=== PATIENT | male | born 1945 | race Caucasian/White ===

== ENCOUNTER 2022-10-10 12:24 | Inpatient (IN) | payer MEDICARE ==
[2022-10-10] MEDS ORDERED: Ondansetron PF 4 MG/2 ML Vial ONE (12:54)
[2022-10-10] MEDS ORDERED: Morphine 4 MG/ML VIAL ONE ×3 (12:54→17:16)
[2022-10-10 13:38] LABS: #Eosinphils 0.3 thou/uL (0.0-0.7); #Lymphocytes 1.5 thou/uL (1.20-3.40); #Monocytes 0.8 thou/uL (0.11-0.59); #Neutrophils 11.2 thou/uL (1.40-6.50); %Basophils 0.2 % (0.0-1.0); %Eosinophils 1.9 % (0.0-10.0); %Lymphocytes 11.2 % (21.0-51.0); %Monocytes 5.7 % (0.0-10.0); Hemoglobin 12.2 g/dL (14.0-18.0); Mean Corpuscular HGB CONC 33.4 g/dL (32.0-36.0); Mean Corpuscular Hemoglobin 31.6 pg (27.0-31.0); Mean Corpuscular Volume 94.4 fl (78.0-98.0); Mean Platelet Volume 7.9 fL (7.4-10.4); Platelet Count 206 10x3/uL (130-400); RBC Distribution Width 11.9 % (11.5-14.5); Red Blood Cell (RBC) Count 3.87 mill/uL (4.70-6.10); White Blood Cell (WBC) Count 13.8 10x3/uL (4.8-10.8)
[2022-10-10 13:58] LABS: INR-International Normal Ratio 1.3; Prothrombin Time 17.1 sec (12.0-14.7)
[2022-10-10 13:59] LABS: PTT 33.5 sec (22.9-36.1)
[2022-10-10] MEDS ORDERED: Ondansetron PF 4 MG/2 ML Vial IVP PRN (14:01)
[2022-10-10] MEDS ORDERED: hydrALAZINE 20 MG/ML VIAL SLOW IVP PRN (14:01)
[2022-10-10] MEDS ORDERED: TETANUS, DIPHTHERIA TOX,ADULT (TDVAX) 0.5 ML VIAL IM ONE (14:01)
[2022-10-10] MEDS ORDERED: Morphine 2 MG/ML VIAL SLOW IVP PRN (14:01)
[2022-10-10] MEDS ORDERED: Ipratropium/Albuterol 3 ML NEB NEB PRN (14:04)
[2022-10-10] MEDS ORDERED: traMADol HCl 50 MG TAB PO PRN (14:04)
[2022-10-10 14:18] LABS: ALT (SGPT) 20 U/L (8-55); AST (SGOT) 22 U/L (5-34); Albumin 4.2 g/dL (3.4-4.8); Alkaline Phosphatase 90 U/L (40-110); Anion Gap 12 mmol/L (10-20); BUN (Urea Nitrogen) 46 mg/dL (8.4-25.7); Bilirubin, Total 0.7 mg/dL (0.2-1.2); Calc. Creatinine Clearance 0 mL/min (70-130); Carbon Dioxide 22 mmol/L (23-31); Chloride 111 mmol/L (98-107); Estimated GFR 26; Glucose 102 mg/dL (83-110); Potassium 3.8 mmol/L (3.5-5.1); Protein, Total 6.2 g/dL (5.8-8.1); Sodium 141 mmol/L (136-145)
[2022-10-10] MEDS ORDERED: Cyclobenzaprine 10 MG TAB PO PRN (14:34)
[2022-10-10] MEDS ORDERED: Sodium Chloride 0.9% 1,000 ML IV SCH (14:45)
[2022-10-10] MEDS ORDERED: Dextrose 5% in Water 1,000 ML IV PRN (14:51)
[2022-10-10] MEDS ORDERED: Dextrose 50% Abboject 50 ML SYRINGE SLOW IVP PRN (14:51)
[2022-10-10] MEDS ORDERED: Clindamycin/D5W 900 MG in Premix Bag 1 BAG IVPB SCH (15:00)
[2022-10-10] MEDS ORDERED: Furosemide 20 MG/2 ML VIAL SLOW IVP SCH (15:00)
[2022-10-10] MEDS ORDERED: Acetaminophen 500 MG TAB PO SCH (15:15)
[2022-10-10] MEDS ORDERED: traMADol HCl 50 MG TAB PO SCH (18:00)
[2022-10-10 19:05] LABS: SARS-CoV-2 NAA Rapid Test Not Detected (NotDetected)
[2022-10-10] MEDS: Acetaminophen 500 MG TAB PO SCH (20:23)
[2022-10-10] MEDS: Morphine 4 MG/ML VIAL SLOW IVP PRN (20:24)
[2022-10-10] MEDS: Senokot S 8.6-50 MG TAB PO SCH (20:24)
[2022-10-10] MEDS ORDERED: Famotidine/PF 20 mg/2ml Vial SLOW IVP SCH (21:00)
[2022-10-10] MEDS: traMADol HCl 50 MG TAB PO SCH (22:37)
[2022-10-11] MEDS: Acetaminophen 500 MG TAB PO SCH ×2 (02:22→19:19)
[2022-10-11 02:31] LABS: Bacteria/HPF None Seen HPF (None Seen); Bilirubin Negative (Negative); Blood, Urine Negative (Negative); CAUTI Indications for Culture Pelvic or flank pain; Clarity Clear (Clear); Glucose, Urine (Dipstick) Normal (Negative); Ketone, Urine Negative (Negative); Leukocyte Negative Leu/uL (Negative); Nitrite Negative (Negative); Protein, Urine (Dipstick) 10 mg/dL (Neg-Trace); RBC/HPF 0-3 HPF (0-3); Specific Gravity, Urine 1.014 (1.002-1.036); Squamous Epithelial None Seen HPF (0-3); Urobilinogen Normal mg/dL (Less than 2); WBC/HPF 0-3 HPF (0-3)
[2022-10-11 02:38] LABS: Urine Culture Reflex No No
[2022-10-11 03:26] VITALS: BMI 25.3
[2022-10-11] MEDS: traMADol HCl 50 MG TAB PO SCH ×3 (05:51→20:23)
[2022-10-11 06:27] LABS: Hemoglobin A1c 5.2 % (4.0-6.0)
[2022-10-11 06:40] LABS: #Eosinphils 0.4 thou/uL (0.0-0.7); #Lymphocytes 1.5 thou/uL (1.20-3.40); #Monocytes 0.9 thou/uL (0.11-0.59); #Neutrophils 5.9 thou/uL (1.40-6.50); %Basophils 0.4 % (0.0-1.0); %Eosinophils 5.1 % (0.0-10.0); %Lymphocytes 16.9 % (21.0-51.0); %Monocytes 10.2 % (0.0-10.0); %Neutrophils 67.4 % (42.0-75.0); Anion Gap 12 mmol/L (10-20); BUN (Urea Nitrogen) 44 mg/dL (8.4-25.7); Calc. Creatinine Clearance 28 mL/min (70-130); Calcium 9.6 mg/dL (7.8-10.44); Carbon Dioxide 21 mmol/L (23-31); Chloride 113 mmol/L (98-107); Estimated GFR 29; Glucose 92 mg/dL (83-110); Hemoglobin 11.6 g/dL (14.0-18.0); Magnesium 2.1 mg/dL (1.6-2.6); Mean Corpuscular HGB CONC 34.2 g/dL (32.0-36.0); Mean Corpuscular Hemoglobin 33.4 pg (27.0-31.0); Mean Corpuscular Volume 97.4 fl (78.0-98.0); Mean Platelet Volume 7.7 fL (7.4-10.4); Phosphorus 3.8 mg/dL (2.3-4.7); Platelet Count 160 10x3/uL (130-400); Potassium 3.8 mmol/L (3.5-5.1); RBC Distribution Width 11.8 % (11.5-14.5); Red Blood Cell (RBC) Count 3.47 mill/uL (4.70-6.10); Sodium 142 mmol/L (136-145); White Blood Cell (WBC) Count 8.7 10x3/uL (4.8-10.8)
[2022-10-11] MEDS ORDERED: MELATONIN 1 MG PO PRN (07:39)
[2022-10-11] MEDS ORDERED: Nitroglycerin 0.4 MG TAB (25 Tab Bottle) SL PRN (07:39)
[2022-10-11] MEDS ORDERED: MELATONIN PO PRN (07:51)
[2022-10-11] MEDS ORDERED: Non-Formulary Item 1 EACH (Icosapent Ethyl 1 GM Capsule) PO SCH (08:00)
[2022-10-11] MEDS ORDERED: Losartan 25 MG TAB PO SCH (09:00)
[2022-10-11] MEDS: Morphine 4 MG/ML VIAL SLOW IVP PRN (10:04)
[2022-10-11] MEDS: Polyethylene Glycol 3350 17 GM Packet PO SCH (10:09)
[2022-10-11] MEDS: Pantoprazole 40 MG VIAL IVP SCH (10:10)
[2022-10-11] MEDS: Carvedilol 3.125 MG TAB PO SCH (10:10)
[2022-10-11] MEDS: Senokot S 8.6-50 MG TAB PO SCH ×2 (10:11→20:23)
[2022-10-11] MEDS: Icosapent Ethyl 1 GM CAPSULE PO SCH ×2 (10:20→17:37)
[2022-10-11] MEDS: Acetaminophen/Codeine 30-300mg Tablet PO SCH ×3 (11:00→23:17)
[2022-10-11] MEDS ORDERED: Non-Formulary Item 1 EACH (Levothyroxine Sodium [Levothyroxine] 50 MCG Capsule) PO SCH (11:30)
[2022-10-11] MEDS: NIFEdipine XL 60 MG TAB PO SCH (20:23)
[2022-10-12] MEDS: traMADol HCl 50 MG TAB PO SCH ×3 (05:20→21:32)
[2022-10-12] MEDS: Acetaminophen/Codeine 30-300mg Tablet PO SCH ×3 (05:21→17:47)
[2022-10-12] MEDS: Levothyroxine Sodium 50 MCG TAB PO SCH (05:21)
[2022-10-12] MEDS: Carvedilol 3.125 MG TAB PO SCH (09:42)
[2022-10-12] MEDS: NIFEdipine XL 60 MG TAB PO SCH ×2 (09:42→21:31)
[2022-10-12] MEDS ORDERED: Glycopyrrolate 0.2 MG/ML 5 ML SYRINGE ONE (12:45)
[2022-10-12] MEDS ORDERED: Ondansetron PF 4 MG/2 ML Vial ONE (12:45)
[2022-10-12] MEDS ORDERED: NEOSTIGMINE 3 MG/3 ML SYR 3 MG/3 ML SYRINGE ONE (12:45)
[2022-10-12] MEDS ORDERED: Rocuronium Bromide 10 MG/ML (10ML VIAL) ONE (12:45)
[2022-10-12] MEDS ORDERED: PROPOFOL 200 MG/20 ML VIAL ONE (12:45)
[2022-10-12] MEDS ORDERED: Clindamycin/D5W 900 mg/50 ml Premix Bag ONE (13:20)
[2022-10-12] MEDS ORDERED: Fentanyl 100 MCG/2 ML VIAL ONE (14:31)
[2022-10-12] MEDS: Senokot S 8.6-50 MG TAB PO SCH ×2 (17:46→21:32)
[2022-10-12] MEDS: Polyethylene Glycol 3350 17 GM Packet PO SCH (17:46)
[2022-10-12] MEDS: Pantoprazole 40 MG VIAL IVP SCH (17:46)
[2022-10-12] MEDS: Icosapent Ethyl 1 GM CAPSULE PO SCH (17:46)
[2022-10-12] MEDS: Clindamycin/D5W 900 MG in Premix Bag 1 BAG IVPB SCH (21:31)
[2022-10-13] MEDS: Acetaminophen/Codeine 30-300mg Tablet PO SCH ×5 (00:28→21:05)
[2022-10-13] MEDS: traMADol HCl 50 MG TAB PO SCH ×3 (05:44→21:28)
[2022-10-13] MEDS: Clindamycin/D5W 900 MG in Premix Bag 1 BAG IVPB SCH (05:45)
[2022-10-13] MEDS: Levothyroxine Sodium 50 MCG TAB PO SCH (05:45)
[2022-10-13 07:02] LABS: #Eosinphils 0.3 thou/uL (0.0-0.7); #Lymphocytes 1.1 thou/uL (1.20-3.40); #Monocytes 1.2 thou/uL (0.11-0.59); #Neutrophils 6.9 thou/uL (1.40-6.50); %Basophils 0.1 % (0.0-1.0); %Eosinophils 2.8 % (0.0-10.0); %Lymphocytes 11.8 % (21.0-51.0); %Monocytes 12.8 % (0.0-10.0); %Neutrophils 72.6 % (42.0-75.0); Hemoglobin 10.5 g/dL (14.0-18.0); Mean Corpuscular HGB CONC 34.2 g/dL (32.0-36.0); Mean Corpuscular Hemoglobin 32.6 pg (27.0-31.0); Mean Corpuscular Volume 95.5 fl (78.0-98.0); Mean Platelet Volume 7.9 fL (7.4-10.4); Platelet Count 136 10x3/uL (130-400); RBC Distribution Width 11.5 % (11.5-14.5); White Blood Cell (WBC) Count 9.5 10x3/uL (4.8-10.8)
[2022-10-13 07:20] LABS: Anion Gap 12 mmol/L (10-20); BUN (Urea Nitrogen) 56 mg/dL (8.4-25.7); Calc. Creatinine Clearance 23 mL/min (70-130); Calcium 9.1 mg/dL (7.8-10.44); Carbon Dioxide 19 mmol/L (23-31); Chloride 109 mmol/L (98-107); Estimated GFR 22; Glucose 99 mg/dL (83-110); Phosphorus 4.3 mg/dL (2.3-4.7); Potassium 4.3 mmol/L (3.5-5.1); Sodium 136 mmol/L (136-145)
[2022-10-13] MEDS: NIFEdipine XL 60 MG TAB PO SCH ×2 (09:39→21:06)
[2022-10-13] MEDS: Carvedilol 3.125 MG TAB PO SCH (09:40)
[2022-10-13] MEDS: Senokot S 8.6-50 MG TAB PO SCH ×2 (09:40→21:06)
[2022-10-13] MEDS: Polyethylene Glycol 3350 17 GM Packet PO SCH (09:40)
[2022-10-13] MEDS: Pantoprazole 40 MG VIAL IVP SCH (09:40)
[2022-10-13] MEDS: Sodium Chloride 0.9% 1,000 ML IV SCH (09:41)
[2022-10-13] MEDS ORDERED: Furosemide 40 MG TAB PO SCH (14:00)
[2022-10-13] MEDS: Icosapent Ethyl 1 GM CAPSULE PO SCH (18:23)
[2022-10-13 20:32] LABS: Bacteria/HPF None Seen HPF (None Seen); Bilirubin Negative (Negative); Blood, Urine Negative (Negative); CAUTI Indications for Culture Alt mental st,lethar; Clarity Clear (Clear); Glucose, Urine (Dipstick) Normal (Negative); Ketone, Urine Negative (Negative); Leukocyte Negative Leu/uL (Negative); Mucous/LPF Rare LPF (<2+); Nitrite Negative (Negative); Protein, Urine (Dipstick) 10 mg/dL (Neg-Trace); RBC/HPF None Seen HPF (0-3); Specific Gravity, Urine 1.016 (1.002-1.036); Squamous Epithelial None Seen HPF (0-3); Urobilinogen Normal mg/dL (Less than 2); WBC/HPF 0-3 HPF (0-3)
[2022-10-13 20:33] LABS: Urine Culture Reflex No No
[2022-10-13] MEDS: Ezetimibe 10 MG TAB PO SCH (21:06)
[2022-10-13] MEDS: Tamsulosin HCl 0.4 MG CAP PO SCH (21:06)
[2022-10-14] MEDS: Acetaminophen/Codeine 30-300mg Tablet PO SCH ×4 (05:03→23:34)
[2022-10-14] MEDS: Levothyroxine Sodium 50 MCG TAB PO SCH (05:03)
[2022-10-14] MEDS: traMADol HCl 50 MG TAB PO SCH (05:04)
[2022-10-14] MEDS: Sodium Chloride 0.9% 1,000 ML IV SCH (05:04)
[2022-10-14 07:10] LABS: #Eosinphils 0.2 thou/uL (0.0-0.7); #Lymphocytes 1.2 thou/uL (1.20-3.40); #Monocytes 1.2 thou/uL (0.11-0.59); #Neutrophils 6.6 thou/uL (1.40-6.50); %Basophils 0.2 % (0.0-1.0); %Eosinophils 2.2 % (0.0-10.0); %Lymphocytes 12.5 % (21.0-51.0); %Monocytes 12.6 % (0.0-10.0); %Neutrophils 72.4 % (42.0-75.0); Hemoglobin 9.3 g/dL (14.0-18.0); Mean Corpuscular HGB CONC 36.4 g/dL (32.0-36.0); Mean Corpuscular Hemoglobin 34.3 pg (27.0-31.0); Mean Corpuscular Volume 94.3 fl (78.0-98.0); Mean Platelet Volume 8.1 fL (7.4-10.4); Platelet Count 143 10x3/uL (130-400); RBC Distribution Width 11.5 % (11.5-14.5); White Blood Cell (WBC) Count 9.2 10x3/uL (4.8-10.8)
[2022-10-14 07:16] LABS: Anion Gap 12 mmol/L (10-20); BUN (Urea Nitrogen) 76 mg/dL (8.4-25.7); Calc. Creatinine Clearance 19 mL/min (70-130); Calcium 9.3 mg/dL (7.8-10.44); Carbon Dioxide 20 mmol/L (23-31); Chloride 106 mmol/L (98-107); Estimated GFR 19; Glucose 114 mg/dL (83-110); Potassium 4.2 mmol/L (3.5-5.1); Sodium 134 mmol/L (136-145)
[2022-10-14] MEDS ORDERED: Apixaban 5 MG TAB PO SCH (09:00)
[2022-10-14] MEDS: Carvedilol 3.125 MG TAB PO SCH (09:07)
[2022-10-14] MEDS: Senokot S 8.6-50 MG TAB PO SCH ×2 (09:07→20:56)
[2022-10-14] MEDS: Polyethylene Glycol 3350 17 GM Packet PO SCH (09:07)
[2022-10-14] MEDS: Icosapent Ethyl 1 GM CAPSULE PO SCH ×2 (09:07→16:16)
[2022-10-14] MEDS: Pantoprazole 40 MG VIAL IVP SCH (09:07)
[2022-10-14] MEDS: NIFEdipine XL 60 MG TAB PO SCH (09:07)
[2022-10-14] MEDS: HumaLOG 300 UNITS/3 ML VIAL SC PRN ×2 (12:54→16:16)
[2022-10-14] MEDS ORDERED: Sodium Chloride 0.9% 1,000 ML IV SCH (18:15)
[2022-10-14] MEDS ORDERED: Sodium Bicarbonate 100 MEQ in Dextrose 5% in Water 1,000 ML IV SCH (18:30)
[2022-10-14] MEDS: Ezetimibe 10 MG TAB PO SCH (20:56)
[2022-10-14] MEDS: Tamsulosin HCl 0.4 MG CAP PO SCH (20:56)
[2022-10-15] MEDS: Levothyroxine Sodium 50 MCG TAB PO SCH (04:47)
[2022-10-15] MEDS: Acetaminophen/Codeine 30-300mg Tablet PO SCH ×4 (04:47→23:14)
[2022-10-15 07:25] LABS: Anion Gap 13 mmol/L (10-20); BUN (Urea Nitrogen) 88 mg/dL (8.4-25.7); Calc. Creatinine Clearance 14 mL/min (70-130); Calcium 8.8 mg/dL (7.8-10.44); Carbon Dioxide 18 mmol/L (23-31); Chloride 103 mmol/L (98-107); Estimated GFR 13; Glucose 139 mg/dL (83-110); Magnesium 2.3 mg/dL (1.6-2.6); Phosphorus 5.1 mg/dL (2.3-4.7); Sodium 130 mmol/L (136-145)
[2022-10-15] MEDS: Carvedilol 3.125 MG TAB PO SCH ×2 (08:30→08:32)
[2022-10-15] MEDS: Polyethylene Glycol 3350 17 GM Packet PO SCH (08:32)
[2022-10-15] MEDS: Pantoprazole 40 MG VIAL IVP SCH (08:32)
[2022-10-15] MEDS: Senokot S 8.6-50 MG TAB PO SCH ×2 (08:32→19:57)
[2022-10-15] MEDS: Apixaban 5 MG TAB PO SCH ×2 (08:32→19:59)
[2022-10-15] MEDS: Icosapent Ethyl 1 GM CAPSULE PO SCH ×2 (08:32→16:17)
[2022-10-15] MEDS ORDERED: PARICALCITOL 1 MCG PO SCH (09:00)
[2022-10-15] MEDS: HumaLOG 300 UNITS/3 ML VIAL SC PRN (11:54)
[2022-10-15] MEDS ORDERED: Bisacodyl 10 MG SUPP PR PRN (12:18)
[2022-10-15] MEDS: Ipratropium/Albuterol 3 ML NEB NEB SCH ×2 (13:19→18:52)
[2022-10-15 13:52] LABS: SARS-CoV-2 NAA Rapid Test Not Detected (NotDetected)
[2022-10-15] MEDS: Ezetimibe 10 MG TAB PO SCH (19:58)
[2022-10-15] MEDS: Gabapentin 100 MG CAP PO SCH (19:58)
[2022-10-15] MEDS: Tamsulosin HCl 0.4 MG CAP PO SCH (19:58)
[2022-10-16] MEDS: Ipratropium/Albuterol 3 ML NEB NEB SCH ×4 (00:42→18:31)
[2022-10-16] MEDS: Levothyroxine Sodium 50 MCG TAB PO SCH (05:12)
[2022-10-16] MEDS: Acetaminophen/Codeine 30-300mg Tablet PO SCH ×3 (05:12→17:31)
[2022-10-16 06:35] LABS: Anion Gap 12 mmol/L (10-20); BUN (Urea Nitrogen) 80 mg/dL (8.4-25.7); Calc. Creatinine Clearance 19 mL/min (70-130); Calcium 8.8 mg/dL (7.8-10.44); Carbon Dioxide 20 mmol/L (23-31); Chloride 110 mmol/L (98-107); Estimated GFR 18; Glucose 103 mg/dL (83-110); Magnesium 2.5 mg/dL (1.6-2.6); Phosphorus 4.1 mg/dL (2.3-4.7); Potassium 4.1 mmol/L (3.5-5.1); Sodium 138 mmol/L (136-145)
[2022-10-16] MEDS: Senokot S 8.6-50 MG TAB PO SCH ×2 (08:32→21:10)
[2022-10-16] MEDS: hydrALAZINE 25 MG TAB PO SCH ×3 (08:32→21:09)
[2022-10-16] MEDS: Apixaban 5 MG TAB PO SCH ×2 (08:32→21:09)
[2022-10-16] MEDS: Icosapent Ethyl 1 GM CAPSULE PO SCH ×2 (08:32→17:31)
[2022-10-16] MEDS: Gabapentin 100 MG CAP PO SCH ×2 (08:33→21:09)
[2022-10-16] MEDS: Pantoprazole 40 MG VIAL IVP SCH (08:33)
[2022-10-16] MEDS: Carvedilol 3.125 MG TAB PO SCH ×3 (08:33→21:09)
[2022-10-16] MEDS: Polyethylene Glycol 3350 17 GM Packet PO SCH (08:36)
[2022-10-16] MEDS: HumaLOG 300 UNITS/3 ML VIAL SC PRN ×2 (11:24→17:34)
[2022-10-16] MEDS: Ezetimibe 10 MG TAB PO SCH (21:09)
[2022-10-16] MEDS: Tamsulosin HCl 0.4 MG CAP PO SCH (21:09)
[2022-10-17] MEDS: Ipratropium/Albuterol 3 ML NEB NEB SCH ×3 (00:05→14:17)
[2022-10-17] MEDS: Acetaminophen/Codeine 30-300mg Tablet PO SCH ×3 (00:25→11:41)
[2022-10-17] MEDS: Levothyroxine Sodium 50 MCG TAB PO SCH (05:34)
[2022-10-17 06:45] LABS: #Basophils 0.1 thou/uL (0.0-0.2); #Eosinphils 0.2 thou/uL (0.0-0.7); #Lymphocytes 1.1 thou/uL (1.20-3.40); #Monocytes 0.8 thou/uL (0.11-0.59); #Neutrophils 5.5 thou/uL (1.40-6.50); %Basophils 0.7 % (0.0-1.0); %Lymphocytes 13.8 % (21.0-51.0); %Monocytes 10.2 % (0.0-10.0); %Neutrophils 72.2 % (42.0-75.0); Hemoglobin 9.1 g/dL (14.0-18.0); Mean Corpuscular HGB CONC 33.9 g/dL (32.0-36.0); Mean Corpuscular Hemoglobin 31.7 pg (27.0-31.0); Mean Corpuscular Volume 93.7 fl (78.0-98.0); Mean Platelet Volume 6.9 fL (7.4-10.4); Platelet Count 235 10x3/uL (130-400); RBC Distribution Width 11.4 % (11.5-14.5); Red Blood Cell (RBC) Count 2.86 mill/uL (4.70-6.10); White Blood Cell (WBC) Count 7.6 10x3/uL (4.8-10.8)
[2022-10-17] MEDS: Gabapentin 100 MG CAP PO SCH (08:32)
[2022-10-17] MEDS: Apixaban 5 MG TAB PO SCH (08:33)
[2022-10-17] MEDS: Carvedilol 3.125 MG TAB PO SCH (08:33)
[2022-10-17] MEDS: hydrALAZINE 25 MG TAB PO SCH ×2 (08:33→15:37)
[2022-10-17] MEDS: Icosapent Ethyl 1 GM CAPSULE PO SCH (08:36)
[2022-10-17] MEDS: Polyethylene Glycol 3350 17 GM Packet PO SCH (08:37)
[2022-10-17] MEDS: Senokot S 8.6-50 MG TAB PO SCH (08:37)
[2022-10-17 08:59] LABS: Chloride 110 mmol/L (98-107); Potassium 4.2 mmol/L (3.5-5.1); Sodium 140 mmol/L (136-145)
[2022-10-17 09:00] LABS: Calcium 9.6 mg/dL (7.8-10.44); Glucose 163 mg/dL (83-110)
[2022-10-17 09:02] LABS: Anion Gap 13 mmol/L (10-20); Carbon Dioxide 21 mmol/L (23-31)
[2022-10-17 09:04] LABS: Calc. Creatinine Clearance 28 mL/min (70-130); Estimated GFR 29
[2022-10-17 09:05] VITALS: TEMP 98.4
[2022-10-17 09:05] LABS: BUN (Urea Nitrogen) 60 mg/dL (8.4-25.7)
[2022-10-17 09:06] LABS: Magnesium 2.4 mg/dL (1.6-2.6)
[2022-10-17 09:09] LABS: Phosphorus 2.5 mg/dL (2.3-4.7)
[2022-10-17] MEDS: HumaLOG 300 UNITS/3 ML VIAL SC PRN (11:47)
[2022-10-17 12:39] VITALS: BP 169/74
== END 2022-10-17 15:32 | DRG 481 ==
LOC: ERS 12:24 → ERHOLD 14:04 → SURG B 19:47
PROVIDERS: ADMIT Surgery; ATTEND Surgery
PROC: 0QS606Z Reposition Right Upper Femur with Intramedullary Internal Fixation Device, Open Approach (ICD-10-PCS; principal; 2022-10-12)
DX: S72.141A Displaced intertrochanteric fracture of right femur, initial encounter for closed fracture (principal); I13.0 Hypertensive heart and chronic kidney disease with heart failure and stage 1 through stage 4 chronic kidney disease, or unspecified chronic kidney disease; I50.22 Chronic systolic (congestive) heart failure; N17.9 Acute kidney failure, unspecified; Z20.822 Contact with and (suspected) exposure to COVID-19; I48.91 Unspecified atrial fibrillation; W11.XXXA Fall on and from ladder, initial encounter; E78.5 Hyperlipidemia, unspecified; I25.10 Atherosclerotic heart disease of native coronary artery without angina pectoris; N18.9 Chronic kidney disease, unspecified; E11.22 Type 2 diabetes mellitus with diabetic chronic kidney disease; Z86.73 Personal history of transient ischemic attack (TIA), and cerebral infarction without residual deficits; Z79.01 Long term (current) use of anticoagulants; Z90.49 Acquired absence of other specified parts of digestive tract; Z79.899 Other long term (current) drug therapy; Z79.890 Hormone replacement therapy; Z88.0 Allergy status to penicillin; Y92.009 Unspecified place in unspecified non-institutional (private) residence as the place of occurrence of the external cause
CPT/HCPCS: 36415; 36416; 71045; 72170; 80048; 80053; 81001; 83036; 83735; 83880; 84100; 85025; 85610; 85730; 86850; 86900; 86901; 93005; 93306; 94640; 96374; 96375; 96376; C1713; C9113; G0390; J1815; J2270; J2405; J2704; J3010; J3490; J7050; J7070; J7620; U0002